=== PATIENT | female | born 1955 | race Caucasian/White ===

== ENCOUNTER 2020-01-02 10:03 | Emergency (ER) | payer MEDICARE, MEDICAID, SELFPAY ==
--- NOTE | ~2020-01-02 | CT_ITS ---
EXAMINATION: CT femur RT w con EXAM DATE: 01/02/2020 12:36 INDICATION: Right hip pain, bruising, right knee pain. States fell 5 days ago. TECHNIQUE: Spiral CT femur RT w con was performed following intravenous injection of 100 mL Omnipaque 350. Axial, coronal and sagittal images were reviewed. The dose-length product (DLP) for this exam ination was 481.37 mGy-cm. The exposure was tailored according to patient size (auto mA exposure con trol), and iterative reconstruction (ASIR) was used as additional dose reduction technique. There is no prior study for comparison. FINDINGS: Moderate right L4-5 and L5-S1 facet arthropathy. Right sacroiliac joint is intact as is th e right side of the pelvis. There are no acute right femur, hip fractures or dislocations identified. There is no subcutaneous gas. Minimal common femoral arterial sclerosis, no femoral arterial stenos is through the knee. There is no knee joint effusion, patellar or proximal tibial fracture. There are no radiopaque foreign bodies. There is mild right hip and knee primary osteoarthritis. Mild fat st randing along the posterior lateral aspect of the right upper thigh subcutaneous fat. Musculature unr emarkable, no focal hematoma. IMPRESSION: No acute osseous findings. Reviewed, dictated and finalized at location A. SWING OPERATOR IMPRESSION: No acute osseous findings.
[2020-01-02 10:15] VITALS: BP 111/56; PULSE 62; RESP 18; TEMP 36.7; O2SAT 100
--- NOTE | 2020-01-02 10:17 | ED.FALL ---
HPI - Fall General Chief Complaint: Fall Stated Complaint: hematoma to right hip post fall Time Seen by Provider: 01/02/20 10:04 Source: patient and RN notes reviewed Mode of arrival: ambulatory Limitations: no limitations History of Present Illness HPI Narrative: Pt is a 64 y/o female who presents to the ED with c/o a fall which occurred 5 days ago. Pt states she was standing on a chair, when it slipped, and fell from underneath her feet. She reports she fell from a height of 2 feet. Pt reports hitting her head on her sofa when she fell, but denies any LOC. She states she has been limping since the fall, and has been unable to ambulate normally. Pt denies another fall since the initial fall. She states she noticed a small ecchymosis on the anterior side of her RLE. However, she reports her granddaughter noticed a larger ecchymosis on the lateral side of her RLE. The pt reports the ecchymosis kept increasing in size and pain since the fall. She reports visiting [facility] and had an x-ray ordered, but was given no formal diagnosis as nothing was broken. Pt was recommended to take Tylenol for the pain. She was prompted to visit her PCP. Her PCP also ordered an x-ray, but prompted the pt to come to the ED to be evaluated further. She reports intermittent RLE numbness/tingling, but denies a headache or any vision changes. Pt reports she currently sees [facility] for her chronic pain in her RLE, which she is given any steroid shots for. She denies ever receiving a formal diagnosis for her chornic RLE pain. Pt also reports being on anticoagulation medication, Plavix. complaint: fall Onset (ago): day(s) (5 days ago) Fall from: chair (standing on a chair) Fall witnessed: yes, by family (by granddaughter) Place fall occurred: home Loss of consciousness: none Prolonged down time: unclear Symptoms prior to fall: none Context: tripped/slipped (chair slipped under her feet) Location of injury: other (ecchymosis on RLE) Associated symptoms (after fall): other (RLE numbness/tingling; RLE pain; ecchymosis to RLE) Related Data Home Medications Medication Instructions Recorded Confirmed nitroglycerin mg 11/01/19 rosuvastatin mg 11/01/19 aspirin 81 mg tablet,delayed 81 mg PO DAILY 01/01/20 release citalopram 20 mg tablet 20 mg PO DAILY tablet 01/01/20 clopidogrel 75 mg tablet 75 mg PO DAILY tablet 01/01/20 furosemide 20 mg tablet See Rx Instructions .ROUTE .COMPLEX 01/01/20 magnesium citrate 150 ml PO DAILY 01/01/20 mirabegron 50 mg tablet,extended See Rx Instructions .ROUTE .COMPLEX 01/01/20 release 24 hr polyethylene glycol 3350 17 gram See Rx Instructions .ROUTE .COMPLEX 01/01/20 oral powder packet potassium chloride 10 mEq 10 meq PO .COMPLEX tablet 01/01/20 tablet,extended release pregabalin 75 mg capsule 75 mg PO BID 01/01/20 ramipril 2.5 mg capsule 2.5 mg PO DAILY cap 01/01/20 ranitidine HCl 150 mg tablet 150 mg PO DAILY tablet 01/01/20 trazodone 100 mg tablet 100 mg PO .COMPLEX 01/01/20 ziprasidone HCl 20 mg capsule 20 mg PO .bid with food cap 01/01/20 Allergies Allergy/AdvReac Type Severity Reaction Status Date / Time simvastatin Allergy Unknown Unknown Verified 01/02/20 10:31 rosuvastatin [From Crestor] Allergy Other Verified 01/02/20 10:31 Review of Systems Review of Systems: All systems reviewed & are unremarkable except as noted in HPI and below Eyes: Eyes: Denies change in vision Musculoskeletal: Musculoskeletal: Reports other (RLE pain) Integumentary/Breasts: Skin/Breast: Reports other (ecchymosis to RLE) Neurologic: Denies syncope (secondary to fall), Denies headache(s) and Reports numbness (and tingling to RLE) [facility] Social History Social History Smoking status: Never smoker Alcohol intake: never Exam Narrative: Exam Narrative: GENERAL: Well-appearing, well-nourished, and in no acute distress.
[2020-01-02 10:40] VITALS: BP 118/52; PULSE 60; RESP 18; O2SAT 100
[2020-01-02 10:51] LABS: Blood Urea Nitrogen 10 mg/dL (7-17); Calcium 8.9 mg/dL (8.4-10.2); Carbon Dioxide 29 mmol/L (22-30); Chloride 100 mmol/L (98-107); Estimated CRCL calculation 69 ml/min; Estimated Glomerular Filt Rate > 60; Glucose 95 mg/dL (65-105); Potassium 3.6 mmol/L (3.4-5.0); Sodium 140 mmol/L (137-145)
[2020-01-02 10:53] LABS: Basophils Absolute Auto 0.1 K/mm3 (0.0-0.1); Basophils Percent Auto 0.8 % (0.2-1.2); Eosinophils Absolute Auto 0.2 K/mm3 (0-0.3); Eosinophils Percent Auto 2.5 % (0-4.4); Hematocrit 36.5 % (37.0-47.0); Hemoglobin 11.4 g/dL (12.0-15.0); Immature Granulocyte Absolute 0.01 K/mm3 (0.00-0.031); Immature Granulocyte Percent A 0.2 % (0-0.5); Lymphocytes Absolute Auto 1.62 K/mm3 (0.9-3.2); Lymphocytes Percent Auto 25.6 % (18.3-44.2); Mean Corpuscular HGB Conc 31.2 g/dl (32-36); Mean Corpuscular Hemoglobin 26.3 pg (26-34); Mean Corpuscular Volume 84.1 fl (80-100); Mean Platelet Volume 9.4 fl (7.4-10.4); Monocytes Absolute Auto 0.4 K/mm3 (0.1-0.6); Monocytes Percent Auto 5.8 % (2.6-8.5); Neutrophils Absolute Auto 4.1 K/mm3 (1.3-6.7); Neutrophils Percent Auto 65.1 % (45.5-73.1); Platelet Count Result 361 k/mm3 (150-375); Red Blood Count 4.34 M/mm3 (4.2-5.4); Red Cell Distribution Width 15.8 % (11.5-14.5); White Blood Count 6.3 K/mm3 (4.5-10.0)
[2020-01-02 11:17] VITALS: BP 113/64; PULSE 60; RESP 16; O2SAT 98
--- NOTE | 2020-01-02 11:20 | PC.NURSE ---
1120-Report given to FLORENCE Lockhart
[2020-01-02 14:46] VITALS: BP 149/77; PULSE 84; RESP 16; O2SAT 98
== END 2020-01-02 14:50 | disposition home or self-care (01) ==
PROVIDERS: Emergency Provider Emergency Medicine; PCP Emergency Medicine
DX: R20.2 Paresthesia of skin (principal); S70.11XA Contusion of right thigh, initial encounter; W07.XXXA Fall from chair, initial encounter; Z79.02 Long term (current) use of antithrombotics/antiplatelets; Z79.82 Long term (current) use of aspirin
CPT/HCPCS: 36415; 73701; 80048; 85025; 99284; Q9967

== ENCOUNTER 2020-08-11 10:30 | Outpatient (CLI) | payer MEDICARE, MEDICAID, SELFPAY ==
[2020-08-11 11:42] LABS: Alanine Aminotransferase 16 U/L (4-35); Albumin Level 4.1 g/dL (3.5-5.1); Alkaline Phosphatase 107 U/L (38-126); Anion Gap 9 mmol/L (8-16); Aspartate Amino Transferase 28 U/L (14-36); Bilirubin,Total 0.5 mg/dL (0.2-1.3); Blood Urea Nitrogen 19 mg/dL (7-17); Calcium 9.5 mg/dL (8.4-10.2); Carbon Dioxide 30 mmol/L (22-30); Chloride 105 mmol/L (98-107); Cholesterol 150 mg/dL (0-200); Estimated Glomerular Filt Rate > 60; Glucose 97 mg/dL (65-105); HDL Direct 54 mg/dL; Potassium 3.9 mmol/L (3.4-5.0); Sodium 144 mmol/L (137-145); Triglycerides 181 mg/dL (<150)
[2020-08-11 11:53] LABS: LDL Cholesterol Direct 59 mg/dL
== END 2020-08-11 10:31 | disposition home or self-care (01) ==
PROVIDERS: PCP Emergency Medicine; Visit Provider Emergency Medicine
DX: E78.2 Mixed hyperlipidemia (principal); I25.10 Atherosclerotic heart disease of native coronary artery without angina pectoris; R06.00 Dyspnea, unspecified; I10 Essential (primary) hypertension
CPT/HCPCS: 36415; 80053; 80061

== ENCOUNTER 2021-03-09 10:05 | Outpatient (CLI) | payer MEDICARE, MEDICAID, SELFPAY ==
--- NOTE | ~2021-03-09 | XR_ITS ---
EXAMINATION: XR hip BI 2V w AP pelvis EXAM DATE: 03/09/2021 10:24 INDICATION: Fall, bilateral hip and low back pain. TECHNIQUE: Each hip imaged independently (separate right and also left hip) 'frog leg' and frontal p rojections for interpretation. Frontal projection pelvis. There is no prior study for comparison. FINDINGS: No radiographic evidence of hip avascular necrosis. There is mild symmetric bilateral hip primary osteoarthritis. Sacrum, sacroiliac joints, sacral arcuate lines are intact. There are no acu te fractures or dislocations identified. There is no subcutaneous gas. The soft tissue is unremarka ble. Some left thigh surgical clips medially. IMPRESSION: Mild symmetric bilateral hip osteoarthritis. Reviewed, dictated and finalized at location A.
--- NOTE | ~2021-03-09 | XR_ITS ---
EXAMINATION: XR lumbar spine 2-3V EXAM DATE: 03/09/2021 10:24 INDICATION: Fall, back pain. Initial encounter. TECHNIQUE: Lumber spine frontal, lateral, lateral L5-S1 projections for interpretation. There is no prior study for comparison. FINDINGS: Minimal lumbar levoscoliosis. There is moderate loss of the L1-2 disc height, mild disc dis ease at the other lumbar levels. There is bulky facet arthropathy at L4-5, less at the other levels. Moderate aortic arterial sclerosis. The vertebral bodies are aligned in the AP dimension. There are no acute fractures identified. Vertebral body heights are maintained. Probable ingested tablet. IMPRESSION: 1. No acute lumbar findings. 2. Spondylosis. Reviewed, dictated and finalized at location A.
== END 2021-03-09 10:06 | disposition home or self-care (01) ==
PROVIDERS: PCP Emergency Medicine; Visit Provider Emergency Medicine
DX: G89.29 Other chronic pain (principal); M54.9 Dorsalgia, unspecified; M25.511 Pain in right shoulder; M25.552 Pain in left hip; M47.816 Spondylosis without myelopathy or radiculopathy, lumbar region; M16.0 Bilateral primary osteoarthritis of hip
CPT/HCPCS: 72100; 73521

== ENCOUNTER 2021-04-05 11:26 | Outpatient (CLI) | payer MEDICARE, MEDICAID, SELFPAY ==
--- NOTE | ~2021-04-05 | MR_ITS ---
EXAMINATION: MR cervical spine wo con DATE: 04/05/2021 12:06 INDICATION: Neck pain. TECHNIQUE: Magnetic resonance imaging (MRI) of the cervical spine was performed without intravenous c ontrast. Sequences included sagittal T2-weighted FSE, sagittal STIR FSE, sagittal T1-weighted FSE, ax ial MERGE, and axial T2-weighted FSE. COMPARISON: None FINDINGS: There is 5 degrees levocurvature of cervical spine. There is mild kyphosis of cervical spin e. There is mild chronic anterior wedging of C4, C5, and C6 vertebral bodies. There is moderately dec reased disc height at C5-C6 and C6-C7. The spinal cord signal intensity is normal. The following disc levels are specifically discussed: C2-C3: The disc does not extend beyond the endplate margin. There is no uncovertebral joint osteoarth ritis. There is severe bilateral facet joint osteoarthritis. There is no neural foraminal stenosis. T here is no central canal stenosis. C3-C4: There is a central extrusion. There is moderate right and mild left uncovertebral joint osteoa rthritis. There is severe right and mild left facet joint osteoarthritis. There is moderate right susy ral foraminal stenosis. There is mild central canal stenosis with ventral indentation of the spinal c ord. C4-C5: The disc is bulging. There is severe right and moderate left uncovertebral joint osteoarthriti s. There is severe right and moderate left facet joint osteoarthritis. There is moderate right and mi ld left neural foraminal stenosis. There is moderate central canal stenosis with ventral and dorsal i ndentation of the spinal cord. C5-C6: The disc is bulging. There is severe bilateral uncovertebral joint osteoarthritis. There is se vicki right and moderate left facet joint osteoarthritis. There is moderate bilateral neural foraminal stenosis. There is mild central canal stenosis with ventral indentation of spinal cord. C6-C7: The disc is bulging. There is severe bilateral uncovertebral joint osteoarthritis. There is se vicki bilateral facet joint osteoarthritis. There is moderate bilateral neural foraminal stenosis. The re is mild central canal stenosis. C7-T1: There is a central protrusion. There is mild bilateral uncovertebral joint osteoarthritis. The re is mild bilateral facet joint osteoarthritis. There is no neural foraminal stenosis. There is no c entral canal stenosis. IMPRESSION: 1. Moderate cervical spondylosis. Reviewed, dictated and finalized at location B.
== END 2021-04-05 11:27 | disposition home or self-care (01) ==
PROVIDERS: PCP Internal Medicine; Visit Provider Nurse Practitioner
DX: M47.813 Spondylosis without myelopathy or radiculopathy, cervicothoracic region (principal); M48.03 Spinal stenosis, cervicothoracic region
CPT/HCPCS: 72141

== ENCOUNTER 2021-05-04 09:41 | Outpatient (CLI) | payer MEDICARE, MEDICAID, SELFPAY ==
--- NOTE | ~2021-05-04 | MR_ITS ---
EXAMINATION: MR lumbar spine wo con DATE: 05/04/2021 10:32 INDICATION: Lumbago. TECHNIQUE: Magnetic resonance imaging (MRI) of the lumbar spine was performed without intravenous con trast. Sequences included sagittal T2-weighted FSE, sagittal T2-weighted FS FSE, sagittal T1-weighted FSE, and axial T2-weighted FSE. COMPARISON: Lumbar spine MRI 04/03/2018 FINDINGS: There is 8 degrees levocurvature of lumbar spine. Vertebral body heights are normal. There is moderately decreased disc height at L1-L2 and mildly decreased disc height at L2-L3. The distal sp inal cord signal intensity is normal. The conus medullaris is at L2-L3. The following disc levels are specifically discussed: L1-L2: The disc is bulging. There is mild bilateral facet joint osteoarthritis. There is mild bilater al neural foraminal stenosis. There is mild central canal stenosis. L2-L3: The disc is bulging. There is moderate bilateral facet joint osteoarthritis. There is mild alisson ateral neural foraminal stenosis. There is mild central canal stenosis. L3-L4: There is bulging. There is moderate bilateral facet joint osteoarthritis. There is mild bilate ral neural foraminal stenosis. There is mild central canal stenosis. L4-L5: The disc is bulging. There is severe bilateral facet joint osteoarthritis. There is mild bilat eral neural foraminal stenosis. There is mild central canal stenosis. L5-S1: The disc is bulging. There is severe right and moderate left facet joint osteoarthritis. There is mild bilateral neural foraminal stenosis. There is mild central canal stenosis. IMPRESSION: 1. Moderate lumbar spondylosis, worsened from 04/03/2018. Reviewed, dictated and finalized at location A.
== END 2021-05-04 09:42 | disposition home or self-care (01) ==
PROVIDERS: PCP Internal Medicine; Visit Provider Nurse Practitioner Family
DX: M54.5 Low back pain (principal); M47.816 Spondylosis without myelopathy or radiculopathy, lumbar region
CPT/HCPCS: 72148

== ENCOUNTER 2021-05-16 09:01 | Outpatient (CLI) | payer MEDICARE, MEDICAID, SELFPAY ==
[2021-05-16 09:17] LABS: Hematocrit 41.9 % (37.0-47.0); Hemoglobin 13.4 g/dL (12.0-15.0)
[2021-05-16 09:27] LABS: Blood Urea Nitrogen 10 mg/dL (7-17); Estimated Glomerular Filt Rate > 60
== END 2021-05-16 09:02 | disposition home or self-care (01) ==
PROVIDERS: PCP Internal Medicine
DX: R06.00 Dyspnea, unspecified (principal)
CPT/HCPCS: 36415; 82565; 84520; 85014; 85018

== ENCOUNTER 2021-09-30 15:05 | Outpatient (CLI) | payer MEDICARE, MEDICAID, SELFPAY ==
[2021-09-30 15:20] LABS: Basophils Percent Auto 0.5 % (0.2-1.2); Eosinophils Absolute Auto 0.4 K/mm3 (0-0.3); Eosinophils Percent Auto 6.1 % (0-4.4); Hematocrit 37.7 % (37.0-47.0); Hemoglobin 12.6 g/dL (12.0-15.0); Immature Granulocyte Absolute 0.01 K/mm3 (0.00-0.031); Immature Granulocyte Percent A 0.2 % (0-0.5); Lymphocytes Absolute Auto 2.16 K/mm3 (0.9-3.2); Mean Corpuscular HGB Conc 33.4 g/dl (32-36); Mean Corpuscular Hemoglobin 29.4 pg (26-34); Mean Corpuscular Volume 88.1 fl (80-100); Mean Platelet Volume 9.5 fl (7.4-10.4); Monocytes Absolute Auto 0.5 K/mm3 (0.1-0.6); Monocytes Percent Auto 7.3 % (2.6-8.5); Neutrophils Absolute Auto 3.2 K/mm3 (1.3-6.7); Neutrophils Percent Auto 50.9 % (45.5-73.1); Platelet Count Result 261 k/mm3 (150-375); Red Blood Count 4.28 M/mm3 (4.2-5.4); Red Cell Distribution Width 13.2 % (11.5-14.5); White Blood Count 6.2 K/mm3 (4.5-10.0)
[2021-09-30 16:02] LABS: Alanine Aminotransferase 14 U/L (4-35); Albumin Level 4.4 g/dL (3.5-5.1); Alkaline Phosphatase 85 U/L (38-126); Anion Gap 9 mmol/L (8-16); Aspartate Amino Transferase 28 U/L (14-36); Bilirubin,Total 0.6 mg/dL (0.2-1.3); Blood Urea Nitrogen 18 mg/dL (7-17); Calcium 9.5 mg/dL (8.4-10.2); Carbon Dioxide 29 mmol/L (22-30); Chloride 101 mmol/L (98-107); Cholesterol 144 mg/dL (0-200); Estimated Glomerular Filt Rate > 60; Glucose 149 mg/dL (65-110); HDL Direct 49 mg/dL; Potassium 3.2 mmol/L (3.4-5.0); Sodium 139 mmol/L (137-145); Triglycerides 178 mg/dL (<150)
[2021-09-30 16:13] LABS: LDL Cholesterol Direct 62 mg/dL
[2021-09-30 17:06] LABS: Vitamin D 25 Hydroxy 59.6 ng/mL
[2021-10-01 11:14] LABS: Hemoglobin A1C 5.1 % (<5.7)
== END 2021-09-30 15:06 | disposition home or self-care (01) ==
LOC: ANHLAB 15:08
PROVIDERS: PCP Internal Medicine; Visit Provider Nurse Practitioner
DX: E55.9 Vitamin D deficiency, unspecified (principal); I25.10 Atherosclerotic heart disease of native coronary artery without angina pectoris; I10 Essential (primary) hypertension; R73.9 Hyperglycemia, unspecified
CPT/HCPCS: 36415; 80053; 80061; 82306; 83036; 85025

== ENCOUNTER 2021-10-13 11:02 | Outpatient (CLI) | payer MEDICARE, MEDICAID, SELFPAY ==
[2021-10-13 11:44] LABS: Iron 80 ug/dL (37-170)
[2021-10-13 11:53] LABS: Percent Iron Saturation 21 % (20-50)
== END 2021-10-13 11:03 | disposition home or self-care (01) ==
PROVIDERS: PCP Internal Medicine; Visit Provider Nurse Practitioner
DX: D64.9 Anemia, unspecified (principal); I25.10 Atherosclerotic heart disease of native coronary artery without angina pectoris
CPT/HCPCS: 36415; 82728; 83540; 83550

== ENCOUNTER 2022-10-19 08:37 | Outpatient (CLI) | payer OTHER, SELFPAY | END 2022-10-19 08:38 | disposition home or self-care (01) | LOC: ANHAUDIO 08:37 | DX: H90.3 Sensorineural hearing loss, bilateral (principal) | CPT/HCPCS: 92557; 92567 ==

== ENCOUNTER 2022-12-10 14:21 | Outpatient (CLI) | payer OTHER, SELFPAY ==
--- NOTE | ~2022-12-10 | MR_ITS ---
EXAMINATION: MR brain IAC wo/w con DATE: 12/10/2022 15:44 INDICATION: Bilateral sensorineural hearing loss. TECHNIQUE: Magnetic resonance imaging (MRI) of the brain, brainstem, and internal auditory canals was performed without and with 12 mL MultiHance intravenous contrast. COMPARISON: Brain MRI 11/11/2015 FINDINGS: There is no intracranial hemorrhage, acute infarction, or abnormal intracranial mass lesion . The ventricles are normal in size. There is a small right mastoid effusion. The internal auditory c anals and inner and middle ears are normal. There are likely changes of ocular lens replacement surge kinga. There is mild mucosal thickening in the ethmoid sinuses. IMPRESSION: 1. Normal brain. 2. Small right mastoid effusion. Reviewed, dictated and finalized at location A. F FORESTER
== END 2022-12-10 14:22 | disposition home or self-care (01) ==
PROVIDERS: Visit Provider Otolaryngology
DX: H90.3 Sensorineural hearing loss, bilateral (principal); H92.03 Otalgia, bilateral
CPT/HCPCS: 70553; A9577

== ENCOUNTER 2023-03-30 13:47 | Emergency (ER) | payer OTHER, SELFPAY ==
--- NOTE | ~2023-03-30 | CT_ITS ---
EXAMINATION: CT BRAIN W/O DATE: 03/30/2023 14:36 INDICATION: Head injury TECHNIQUE: Computed tomography (CT) of the head was performed without intravenous contrast. The dose- length product was 605.33 mGy-cm. Automated exposure control and iterative reconstruction technique w ere employed. COMPARISON: CT dated 10/27/2018 FINDINGS: Normal brain parenchymal volume for age. Normal cutler-white differentiation. No acute intrac ranial hemorrhage, infarction, mass or mass effect. No ventriculomegaly or midline shift. Midline sagittal images demonstrate a normal corpus callosum, c raniovertebral junction and sella turcica. Basilar cisterns are patent. Paranasal sinuses and mastoids are pneumatized. No depressed skull fractures. IMPRESSION: 1. No acute intracranial abnormality. Reviewed, dictated and finalized at location B.
--- NOTE | ~2023-03-30 | XR_ITS ---
EXAMINATION: XR ankle LT min 3V DATE: 03/30/2023 14:43 INDICATION: Lateral left ankle pain and swelling post fall 3 days prior TECHNIQUE: Anteroposterior, oblique, mortise, and lateral views of the left ankle were obtained. COMPARISON: None. FINDINGS: Alignment is normal. No fracture. Joint spaces are well maintained. No ankle joint effusion. Modera te-sized plantar calcaneal spur. Unchanged slightly bulging contour to the skin surface at the medial aspect of the distal lower leg without evident underlying soft tissue density mass and which given t he chronicity is of doubtful clinical significance, potentially a lipoma. IMPRESSION: 1. No acute osseous abnormality. Reviewed, dictated and finalized at location A.
--- NOTE | ~2023-03-30 | XR_ITS ---
XR wrist LT min 3V 03/30/2023 14:43 Indication: Status post recent fall. Left wrist pain. Procedure: 4 views left wrist Comparison: No prior studies for comparison. Findings: Normal mineralization. No acute fracture or traumatic malalignment. Scaphoid intact. No sig nificant soft tissue abnormality. No foreign bodies. Impression: 1: No acute bone or joint abnormality. Reviewed, dictated and finalized at location B. Impression: 1: No acute bone or joint abnormality.
--- NOTE | ~2023-03-30 | CT_ITS ---
EXAMINATION: CT cervical spine wo con DATE: 03/30/2023 14:36 INDICATION: Head injury. TECHNIQUE: Computed tomography (CT) of the cervical spine was performed without intravenous contrast. Automated exposure control and iterative reconstruction technique were employed. The dose-length pro duct was 166.69 mGy-cm. COMPARISON: CT cervical spine 10/27/2018 FINDINGS: There is a small right mastoid effusion. There is 15 degrees levoscoliosis of cervical spin e. There is kyphosis of cervical spine. Vertebral body heights are normal. There is mildly decreased disc height at C4-C5, moderately decreased disc height at C5-C6, and severely decreased disc height a t C6-C7. The following disc levels are specifically discussed: C2-C3: There is no uncovertebral joint osteoarthritis. There is severe bilateral facet joint osteoart hritis. There is mild right neural foraminal stenosis. There is no central canal stenosis. C3-C4: There is moderate right and mild left uncovertebral joint osteoarthritis. There is severe righ t and mild left facet joint osteoarthritis. There is moderate right neural foraminal stenosis. There is no central canal stenosis. C4-C5: There is moderate right and mild left uncovertebral joint osteoarthritis. There is severe righ t and moderate left facet joint osteoarthritis. There is mild right neural foraminal stenosis. There is no central canal stenosis. C5-C6: There is severe bilateral uncovertebral joint osteoarthritis. There is severe right and mild l eft facet joint osteoarthritis. There is mild bilateral neural foraminal stenosis. There is mild cent ral canal stenosis. C6-C7: There is severe bilateral uncovertebral joint osteoarthritis. There is severe bilateral facet joint osteoarthritis. There is mild bilateral neural foraminal stenosis. There is mild central canal stenosis. C7-T1: There is no uncovertebral joint osteoarthritis. There is moderate right and mild left facet gloria int osteoarthritis. There is mild right neural foraminal stenosis. There is no central canal stenosis . IMPRESSION: 1. No fracture. 2. Severe cervical spondylosis. Reviewed, dictated and finalized at location A.
[2023-03-30 13:48] VITALS: BP 92/57; PULSE 76; RESP 16; TEMP 36.8; O2SAT 98
--- NOTE | 2023-03-30 14:07 | ECG_ITS ---
Measurements Intervals [place] Rate: 61 P: 51 ND: 163 QRS: -42 QRSD: 105 T: -6 QT: 424 QTc: 429 Interpretive Statements SINUS RHYTHM MARKED LEFT AXIS DEVIATION INCOMPLETE RIGHT BUNDLE BRANCH BLOCK VOLTAGE CRITERIA FOR LVH BORDERLINE T WAVE ABNORMALITY- ANT/INF LEADS BASELINE ARTIFACT- I, II, III, AVR, AVL, AVF, V1-V2 BORDERLINE ECG COMPARED TO ECG 11/01/2019 10:40:52 NO SIGNIFICANT CHANGES Electronically Signed On 03-30-2023 14:21:00 CDT by Bernard Hylton D.O.
--- NOTE | 2023-03-30 14:09 | ED.FALL ---
HPI - Fall General Chief Complaint: Fall Stated Complaint: Fall three days ago. Time Seen by Provider: 03/30/23 14:04 History of Present Illness HPI Narrative: Pt lost balance and fell striking the back of her head and twsitn left ankle and wrist. Pt denies LOC. Pt complains of neck pain left wrist and left ankle pain. Pt has had recent neck procedures and wants to make sure her neck is ok. Related Data Home Medications Medication Instructions Recorded Confirmed aspirin 81 mg tablet,delayed 81 mg PO DAILY 01/01/20 10/01/21 release benztropine 1 mg tablet 1 mg PO DAILY 10/01/21 10/01/21 citalopram 20 mg tablet 20 mg PO DAILY 10/01/21 10/01/21 ezetimibe 10 mg tablet 10 mg PO DAILY 10/01/21 10/01/21 furosemide 40 mg tablet 40 mg PO DAILY 10/01/21 10/01/21 isosorbide mononitrate 30 mg 30 mg PO DAILY 10/01/21 10/01/21 tablet,extended release 24 hr oxybutynin chloride 5 mg tablet 5 mg PO BID 10/01/21 10/01/21 rosuvastatin 40 mg tablet 40 mg PO .COMPLEX 10/01/21 10/01/21 trazodone 100 mg tablet 150 mg PO .COMPLEX 10/01/21 10/01/21 ziprasidone HCl 20 mg capsule 20 mg PO .bid with food 10/01/21 10/01/21 Allergies Allergy/AdvReac Type Severity Reaction Status Date / Time simvastatin Allergy Unknown Unknown Verified 03/30/23 14:16 Review of Systems Review of Systems: All systems reviewed & are unremarkable except as noted in HPI and below PMFSH Past Medical History Medical History (Updated 03/30/23 @ 15:17 by Siomara Burnett III, DO) Allergies Anemia Anxiety and depression Arthritis CAD (coronary artery disease) s/p bypass GERD (gastroesophageal reflux disease) Headache Heart attack HLD (hyperlipidemia) HTN (hypertension) IBS (irritable bowel syndrome) Jaw fracture Migraine RLS (restless legs syndrome) Seizure Stroke Surgical History Surgical History H/O bladder repair surgery sling H/O section Hx of tubal ligation S/P CABG (coronary artery bypass graft) 2005 Family History Family History Mother Patient's mother is , Onset Age: 88 Father Heart disease Sibling Cancer Hypertension Depression Heart disease Grandparent Cancer Other Breast cancer Cerebrovascular accident Diabetes mellitus Social History Social History Smoking status: Never smoker Alcohol intake: never Exam Const: General: healthy appearing Nutritional Appearance: well nourished Orientation/consciousness: patient oriented x3 Limitations: no limitations HENMT: Head: normal to inspection Eyes: Conjunctivae: conjunctivae normal Pupils: Equal, round and reactive pupils present EOM: EOMs intact bilaterally Neck: Other: no midline tenderness mild paraspinous tenderness b/l with slight spasm Chest: Chest palpation & inspection: normal inspection of the chest Resp: Effort & Inspection: normal respiratory effort Auscultation: clear to auscultation bilaterally Cardio: Rate: regular rate Rhythm: regular rhythm GI: Auscultation: normal bowel sounds Skin: General skin exam: normal color Neuro: General: patient oriented x3, moves all extremities, no focal motor deficits and CN's II-XI intact bilaterally Speech: normal speech Extrem: Other: tender left wris o swelling and lateral left ankle minimal swelling Psych: Mental Status: mental status grossly normal Affect: normal affect Course Vital Signs Vital signs: Vital Signs Temperature 98.2 F 03/30/23 13:48 Pulse Rate 76 03/30/23 13:48 Respiratory Rate 16 03/30/23 13:48 Blood Pressure 92/57 L 03/30/23 13:48 Pulse Oximetry 98 03/30/23 13:48 Temperature 98.2 F 03/30/23 13:48 Pulse Rate 76 03/30/23 13:48 Respiratory Rate 16 03/30/23 13:48 Blood Pressure 92/57 L 03/30/23 13:48 Pulse Oximetry 98
== END 2023-03-30 15:34 | disposition home or self-care (01) ==
PROVIDERS: Emergency Provider Emergency Medicine; PCP Internal Medicine
DX: S93.401A Sprain of unspecified ligament of right ankle, initial encounter (principal); S96.911A Strain of unspecified muscle and tendon at ankle and foot level, right foot, initial encounter; M25.531 Pain in right wrist; I10 Essential (primary) hypertension; I25.10 Atherosclerotic heart disease of native coronary artery without angina pectoris; E78.5 Hyperlipidemia, unspecified; W19.XXXA Unspecified fall, initial encounter
CPT/HCPCS: 70450; 72125; 73110; 73610; 93005; 99284

== ENCOUNTER 2023-07-19 10:53 | Emergency (ER) | payer OTHER, SELFPAY ==
--- NOTE | ~2023-07-19 | CT_ITS ---
EXAMINATION: CT brain wo con INDICATION: Head injury COMPARISON: 03/30/2023 TECHNIQUE: Standard unenhanced head CT. The dose-length product (DLP) was 605.33 mGy-cm. The mA was a djusted according to patient size. Iterative reconstruction technique was employed. FINDINGS: No intracranial hemorrhage, acute infarction, or abnormal mass lesion. The ventricles are n ormal. No abnormal mass effect or midline shift. The cutler-white matter differentiation is normal. The basal cisterns are patent. There is a left frontoparietal scalp hematoma. Changes in the globes are likely from ocular lens surgery. The paranasal sinuses, mastoids and calvarium are normal. IMPRESSION: 1. No acute intracranial abnormality. Reviewed, dictated and finalized at location L.
--- NOTE | ~2023-07-19 | CT_ITS ---
EXAMINATION: CT cervical spine wo con DATE: 07/19/2023 11:19 INDICATION: Head injury TECHNIQUE: Computed tomography (CT) of the cervical spine was performed without intravenous contrast. The dose-length product (DLP) was 185.11 mGy-cm. Automated exposure control and iterative reconstruc tion technique were employed. COMPARISON: 03/30/2023 FINDINGS: There are 2 mm of anterolisthesis of C3 on C4. There is mild loss of intervertebral disc sp parul height at C4-5, moderate loss of disc space height at C5-6, and severe loss of disc space height at C6-7. Vertebral body heights are maintained. There is no fracture. Small degenerative osteophytes project from the anterior endplates of multiple vertebral bodies. The odontoid process is intact. The re is multilevel severe facet and uncovertebral joint osteoarthritis. IMPRESSION: 1. Severe cervical spondylosis without acute findings or significant interval change. Reviewed, dictated and finalized at location L. IMPRESSION: 1. Severe cervical spondylosis without acute findings or significant interval howard blackwell.
--- NOTE | ~2023-07-19 | XR_ITS ---
EXAMINATION: XR shoulder LT min 2V DATE: 07/19/2023 11:28 INDICATION: Left shoulder pain. Fall. TECHNIQUE: 4 views of left shoulder were obtained. COMPARISON: None. FINDINGS: Bone alignment is normal. No fracture. Joint spaces are normal. Median sternotomy wires and mediastinal surgical clips are seen, likely from prior coronary artery bypass grafting. IMPRESSION: 1. No fracture. Reviewed, dictated and finalized at location A. IMPRESSION: 1. No fracture.
[2023-07-19 10:55] VITALS: BP 124/60; PULSE 60; RESP 16; TEMP 36.5; O2SAT 98
[2023-07-19] MEDS: HYDROGEN PEROXIDE 3% SOLN(*SP) 473 ML BOTTLE (12:27)
--- NOTE | 2023-07-19 13:23 | ED.GENADULT ---
HPI - General Adult General Chief complaint: Head Injury Stated complaint: head injury with LOC - no blood thinners Time Seen by Provider: 07/19/23 12:37 History of Present Illness HPI narrative: Morelia Quintanilla is a 68 y/o female who presents today with her daughter. She states that she was trying to take her dogs outside this morning and was pulled down one step and hit the left side of her head. She closed her eyes when she fell, she then was able to get up and call her daughter because she noticed she was bleeding from her head. Patient has been ambulatory complains of headache and left left shoulder pain Related Data Home Medications Medication Instructions Recorded Confirmed aspirin 81 mg tablet,delayed 81 mg PO DAILY 01/01/20 10/01/21 release benztropine 1 mg tablet 1 mg PO DAILY 10/01/21 10/01/21 citalopram 20 mg tablet 20 mg PO DAILY 10/01/21 10/01/21 ezetimibe 10 mg tablet 10 mg PO DAILY 10/01/21 10/01/21 furosemide 40 mg tablet 40 mg PO DAILY 10/01/21 10/01/21 isosorbide mononitrate 30 mg 30 mg PO DAILY 10/01/21 10/01/21 tablet,extended release 24 hr oxybutynin chloride 5 mg tablet 5 mg PO BID 10/01/21 10/01/21 rosuvastatin 40 mg tablet 40 mg PO .COMPLEX 10/01/21 10/01/21 trazodone 100 mg tablet 150 mg PO .COMPLEX 10/01/21 10/01/21 ziprasidone HCl 20 mg capsule 20 mg PO .bid with food 10/01/21 10/01/21 Allergies Allergy/AdvReac Type Severity Reaction Status Date / Time simvastatin Allergy Unknown Unknown Verified 07/19/23 10:53 Review of Systems Review of Systems: CONSTITUTIONAL: Denies fever, chills, or sweats. EYES: Denies visual changes, redness, or discharge. ENT: Denies rhinorrhea, congestion, sore throat, or otalgia. CARDIOVASCULAR: Denies chest pain, palpitations, or edema. RESPIRATORY: Denies cough or dyspnea. GASTROINTESTINAL: Denies abdominal pain, nausea, vomiting, or diarrhea. GENITOURINARY: Denies dysuria or hematuria. SKIN: Denies rash or itching. MUSCULOSKELETAL: Complains of pain to left shoulder and headache after fall today NEUROLOGIC: Denies headache, numbness, dizziness, or weakness. PSYCHIATRIC: Denies anxiety or depression. [facility] Past Medical History Medical History Allergies Anemia Anxiety and depression Arthritis CAD (coronary artery disease) s/p bypass GERD (gastroesophageal reflux disease) Headache Heart attack HLD (hyperlipidemia) HTN (hypertension) IBS (irritable bowel syndrome) Jaw fracture Migraine RLS (restless legs syndrome) Seizure Stroke Surgical History Surgical History H/O bladder repair surgery sling H/O section Hx of tubal ligation S/P CABG (coronary artery bypass graft) 2005 Family History Family History Mother Patient's mother is , Onset Age: 88 Father Heart disease Sibling Cancer Hypertension Depression Heart disease Grandparent Cancer Other Breast cancer Cerebrovascular accident Diabetes mellitus Social History Social History Smoking status: Never smoker Alcohol intake: never Exam Narrative: GENERAL: Well-appearing, well-nourished, and in no acute distress. HEAD: Normocephalic, approximate 0.5 cm abrasion to the left upper scalp area. NO active bleeding noted. EYES: PERRLA and EOMI. ENT: Nares clear, no rhinorrhea or epistaxis. Mucous membranes moist. Oropharynx without tonsillar hypertrophy exudate or other lesions. NECK: Supple. No adenopathy or masses. No carotid bruits or JVD CHEST: Clear to auscultation. No respiratory distress. No wheezes rales or rhonchi HEART: Regular rate and rhythm. No murmur heard. Normal peripheral pulses. ABDOMEN: Soft, nontender, nondistended, normal active bowel sounds. EXTREMITIES: Normal range of motion. No edema. SKIN: War
[2023-07-19] MEDS: NAPROXEN 375 MG TABLET PO (13:38)
[2023-07-19] MEDS: ACETAMINOPHEN 500 MG TABLET 1000 MG PO (13:38)
[2023-07-19] MEDS: CYCLOBENZAPRINE HCL 5 MG TABLET PO (13:38)
[2023-07-19] MEDS: BACITRACIN OINTMENT 15 GM TUBE 1 APPLIC TOPICAL (13:39)
[2023-07-19 14:12] VITALS: BP 118/64; PULSE 64; RESP 16; TEMP 36.6; O2SAT 100
== END 2023-07-19 14:13 | disposition home or self-care (01) ==
PROVIDERS: Emergency Provider Nurse Practitioner Family; PCP Internal Medicine
DX: S00.01XA Abrasion of scalp, initial encounter (principal); M25.512 Pain in left shoulder; I25.10 Atherosclerotic heart disease of native coronary artery without angina pectoris; E78.5 Hyperlipidemia, unspecified; I10 Essential (primary) hypertension; I25.2 Old myocardial infarction; Z95.1 Presence of aortocoronary bypass graft; W10.9XXA Fall (on) (from) unspecified stairs and steps, initial encounter
CPT/HCPCS: 70450; 72125; 73030; 99284; A9270

== ENCOUNTER 2024-07-13 08:16 | Outpatient (CLI) | payer OTHER, SELFPAY ==
--- NOTE | ~2024-07-13 | MM_ITS ---
EXAMINATION: MM screening preethi BI w anamaria HISTORY: Screening TECHNIQUE: Craniocaudal and mediolateral oblique 3-D tomosynthesis images were obtained and synthetic 2-D images were generated. CAD analysis was submitted and interpreted. COMPARISON: 08/07/2019 BREAST PARENCHYMAL COMPOSITION: Not dense: There are scattered areas of fibroglandular density. FINDINGS: There is no evidence of suspicious mass, calcification, or architectural distortion to sugg est malignancy in either breast. There has been no suspicious interval change. IMPRESSION: 1. No mammographic evidence of malignancy. 2. Recommend routine screening mammography in one year. BI-RADS Category 1: Negative Reviewed, dictated and finalized at location B.
== END 2024-07-13 08:17 | disposition home or self-care (01) ==
PROVIDERS: PCP Internal Medicine; Visit Provider Nurse Practitioner
DX: Z12.31 Encounter for screening mammogram for malignant neoplasm of breast (principal)
CPT/HCPCS: 77063; 77067